=== PATIENT | female | born 1950 | race Caucasian/White ===

== ENCOUNTER → 2018-12-04 | Outpatient (CLI) | payer BC ==
--- NOTE | 2018-12-04 17:21 | KCIC ---
CERVICAL SPINE 5V History: Degenerative disc disease, neck pain, radiculopathy, previous surgery, right hand numbness Comparison: May 24, 2005 Findings: 7 views cervical spine are submitted. There has been anterior cervical fusion at C5-6 at which there is anterior metallic plate and screws, incorporated interbody graft at this level. There is grade 1 anterior spondylolisthesis at C3-C4. There is [id number] degenerative disc disease at C4-5, also fairly advanced narrowing of the C6-7 intervertebral disc space. There is spondylosis greatest C6-7 and to lesser degree at C4-5. There is multilevel cervical facet degenerative change. There is large area of calcification of the visualized superior right hemithorax near the lung apex, present on previous chest CT 2011. Impression: 1. There is intact anterior cervical fusion hardware C5-6. 2. There is multilevel cervical facet degenerative change. There is degenerative disc disease and spondylosis greatest at C6-7 and to lesser degree at C4-5. There is grade 1 anterior spondylolisthesis C3-4. 3. There is a large area of abnormal calcification of the right lung apex as seen on previous CT in 2011. Electronically signed by: Ruiz Ulloa MD (12/04/2018 5:18 PM) [id number]
== END | disposition home or self-care (01) ==
LOC: KCIC 15:32
PROVIDERS: ATTEND Physician Assistant Medical
DX: M50.121 Cervical disc disorder at C4-C5 level with radiculopathy (principal); M47.22 Other spondylosis with radiculopathy, cervical region; M43.12 Spondylolisthesis, cervical region; Z98.890 Other specified postprocedural states
CPT/HCPCS: 72050

== ENCOUNTER → 2018-12-05 | Outpatient (CLI) | payer BC ==
--- NOTE | 2018-12-05 16:40 | KCIC ---
MRI Cervical Spine Without Contrast History: Neck pain, previous surgery, numbness of the right hand, degenerative disc disease Technique: Multiplanar, multi sequential noncontrast MR imaging was performed of the cervical spine. Comparison: CT exam February 19, 2005; cervical spine radiograph December 04, 2018 Findings: There is some motion degradation. There has been anterior cervical fusion C5-6, incorporated interbody graft at this level. There is moderate to severe narrowing of the C6-7 intervertebral disc space, mild degenerative disc disease C4-5. There is minimal grade 1 anterior spondylolisthesis C3-C4. There is mild reversal of the lordotic curvature centered near C5-6. Cervical cord caliber is within normal limits without focal signal abnormality. C2-C3: Neural foramina and spinal canal are adequate. There is mild right facet hypertrophic change. C3-C4: There is moderate left facet hypertrophic change. Spinal canal and neural foramina are adequate. C4-C5: There is fairly severe left facet degenerative change. There is minimal disc osteophyte complex. Central canal is adequate about 11 mm. There is mild narrowing of the left neural foramen, right neural foramen adequate. C5-C6: There are posterior osteophytes, central canal minimally narrowed to 9 to 10 mm. Neural foramina are adequate. There is mild facet degenerative change greater on the right. C6-C7: There is minimal disc osteophyte complex and bulge, central canal borderline about 10 mm. There is uncovertebral degenerative change and facet degenerative change bilaterally. There is moderate narrowing of the right neural foramen. Left neural foramen is likely adequate, small nerve root sleeve cyst present. C7-T1: Spinal canal and neural foramina are adequate. Impression: 1. There has been anterior cervical fusion C5-6 with incorporated interbody graft at this level. 2. There is moderate to severe degenerative disc disease C6-7, mild degenerative disc disease at C4-C5. There is multilevel mild spondylosis. There is mild spinal stenosis C5-6 by osteophytes. 3. There is multilevel facet and uncovertebral degenerative change. There is moderate narrowing of the right C6-7 neural foramen, mild narrowing on the left at C4-C5. 4. There is minimal grade 1 anterior spondylolisthesis C3-4. Electronically signed by: Ruiz Ulloa MD (12/05/2018 4:37 PM) [id number]
== END | disposition home or self-care (01) ==
LOC: KCIC MRI 15:39
PROVIDERS: ATTEND Physician Assistant Medical
DX: M50.121 Cervical disc disorder at C4-C5 level with radiculopathy (principal); M48.02 Spinal stenosis, cervical region; M25.78 Osteophyte, vertebrae; M43.12 Spondylolisthesis, cervical region
CPT/HCPCS: 72141

== ENCOUNTER → 2019-03-26 | Outpatient (CLI) | payer BC ==
[~2019-03-26] MED LIST: ASCO500T PO; CHOL100013 PO; GABA-689 PO; IOHEXOL 180 MG/ML 10 ML VIAL. ONE; MULT1TAB52 PO; NAPR220C4 PO; OMEG1CAP38 PO; TIOT18CA IH; methylPREDNISolone ACETATE 40 MG/ML VIAL. ONE; methylPREDNISolone ACETATE 80 MG/ML VIAL. ONE
--- NOTE | 2019-03-26 23:54 | PAIN ---
DATE OF SERVICE: 03/26/2019 INITIAL CONSULTATION CHIEF COMPLAINT: Neck and right greater left, upper extremity pain. HISTORY OF PRESENT ILLNESS: This is a 68-year-old female who presents with history of pain in the base of neck and shoulders, right upper extremity greater than left, since about October of this year, not a result of any specific injury or action that she is aware of, but is gradually increasing, worse with time, a sharp pain, is tingling, numbness and radiation to the right upper extremity, aching pain in the base of the neck and shoulders, worse with activity, standing, walking, lifting items with the right arm, reaching over head with her right hand. The patient reports it does not awaken her from sleep at night, does not affect her bowel or bladder control or ability to walk. She is taking gabapentin, which she feels does help, she takes this at night only. Has also done some physical therapy, which she feels is helpful as well, but the pain is still persistent. The patient did have an MRI scan of the cervical spine showing previous surgery at C5-C6 level and now at C6-C7 showing some mild degenerative disk disease with moderate narrowing in the right neural foramen; left neural foramen likely adequate. Small nerve root sleeve cyst present as well. The patient rates his disability rate from 0-10, 10 being the worst, at a 5 with family home responsibilities, recreation, social activity, occupation and sexual behavior and self-care and 1 with life support activities. The patient notes no loss of motor function, significant fatigability of the right upper extremity with activity and holding items which she reports is becoming more difficult. PAST MEDICAL HISTORY: Significant for COPD, cigarette smoking, quit 6 years ago, hearing loss, arthritis. PREVIOUS SURGERY: Includes cervical fusion in 2004. CURRENT MEDICATIONS: Include naproxen, omega fish oil, vitamin D, vitamin C, Spiriva and gabapentin. ALLERGIES: THE PATIENT IS ALLERGIC TO NEOSPORIN, LEVAQUIN, POLYSPORIN, AUGMENTIN AND FOSAMAX. FAMILY HISTORY: Significant for cancers of various types. SOCIAL HISTORY: The patient does not drink, quit smoking about 6 years ago, is not using any illegal, illicit or recreational drugs. Is , lives with her spouse, lives locally in [place] and is currently retired. REVIEW OF SYSTEMS: The patient's review of systems is positive for those items mentioned in history of present illness. All systems reviewed and otherwise negative. It is complete, full and well documented on the patient's chart. PHYSICAL EXAMINATION: VITAL SIGNS: The patient's blood pressure is 135/76, pulse is 87, respirations 19, temperature 98.0 degrees Fahrenheit, height is 5 feet 3 inches, weight is 115 pounds. GENERAL: The patient is awake, alert, oriented, appropriate, very pleasant demeanor. HEENT: Head is normocephalic, atraumatic. Extraocular movements are intact and symmetrical. Oral cavity: Mucous membranes moist and pink. Dentition is intact. NECK: Shows anterior throat supple without palpable lymphadenopathy noted. Swallow reflex symmetrical. CHEST: Shows normal with inspection. Breath sounds clear to auscultation bilaterally. HEART: Shows S1, S2 clear. No murmurs auscultated. ABDOMEN: Soft, nontender, nondistended. No palpable organomegaly is noted. No rebound or guarding demonstrated. BACK: Shows spine grossly in the midline. Normal-appearing thoracic kyphosis and cervical lordotic curvature. Cervical paraspinous muscle shows symmetrical on inspection, on palpation shows some moderate tenderness diffusely, but only diffusely bilaterally without radiation. The patient has good rotational motion of cervical spine, both laterally as well as extension and flexion with some minor tenderness with extension, but not with forward flexion, with some pulling sensation with forward flexion, but worst turning to the right past 45 degrees and left is nontender. EXTREMITIES: The patient's upper extremities show deep tendon reflexes 2+ in the biceps and triceps tendons. Motor exam is strong with dolphin trainer strength rated at approximately 4/5 on the right and 5/5 on the left. Bicep and tricep flexion also 4/5 right and 5/5 left. Peripheral pulses are 2+ radial distribution. No peripheral edema is noted. Upper extremities are warm and dry to touch, equal in color and appearance. Shoulder shrug is strong and intact without loss of strength on resistance, but with some moderate pain in the patient's right shoulder and right arm posteriorly with resistance only on the right side. The patient's skin shows warm and dry, good turgor. No edema. No sores, rashes or bruising. IMPRESSION: 1. This is a 68-year-old female with approximate 4-month history of increasing pain, base of the neck, right upper extremity in a radicular fashion without any specific injury or action she is aware of. 2. MRI scan of the cervical spine as noted. 3. Arthritis. 4. Chronic obstructive pulmonary disease. 5. Hearing loss. PLAN: Options were discussed with the patient and the patient's spouse, who accompanies her to visit today including conservative medical management, continued therapies and interventional techniques. She would like to pursue interventional techniques. We discussed a cervical epidural steroid injection using description as well as anatomical models to describe the procedure. Risks were discussed including but not limited to bleeding, infection, possibility of epidural hematoma, subsequent neurologic compromise, dural puncture, headaches, spinal cord and/or nerve damage, side effects of steroid medication and poor results regarding pain control. The patient understands and wished to proceed. The patient will return to clinic in approximately 2 weeks for followup, was counseled as to return appointment, activity level and side effects to be aware of. DIAGNOSES: Cervical radiculopathy with cervical degenerative disk disease and cervical post-laminectomy syndrome. PROCEDURE: Cervical epidural steroid injection, translaminar approach at the C6-C7 level using C-arm fluoroscopic guidance under sterile prep and drape using local anesthetic. MEDICATION INJECTED: A total of 120 mg Depo-Medrol plus 5 mL of preservative-free normal saline and 2 mL of contrast. CONDITION AT DISCHARGE: Stable. The patient tolerated procedure well and had no complications. TORI GROVES MD DR: MAGDALENA/simran JOB#: [id number] / [id number]
== END ==
LOC: PNCL 13:29
PROVIDERS: ATTEND Anesthesiology
DX: M50.123 Cervical disc disorder at C6-C7 level with radiculopathy (principal); M96.1 Postlaminectomy syndrome, not elsewhere classified; J44.9 Chronic obstructive pulmonary disease, unspecified; Z87.891 Personal history of nicotine dependence; Z87.39 Personal history of other diseases of the musculoskeletal system and connective tissue; Z88.1 Allergy status to other antibiotic agents; Z88.8 Allergy status to other drugs, medicaments and biological substances
CPT/HCPCS: 62321; J1030; J1040; Q9965

== ENCOUNTER → 2019-04-09 | Outpatient (CLI) | payer BC ==
--- NOTE | 2019-04-10 01:12 | PAIN ---
DATE OF SERVICE: 04/09/2019 DIAGNOSES: Cervical radiculopathy with cervical degenerative disk disease and cervical post-laminectomy syndrome. HISTORY OF PRESENT ILLNESS: The patient is a 68-year-old female, who returns for followup status post cervical epidural steroid injection x 1. The patient reports about 50% improvement in the neck and bilateral upper extremities with much improvement though with some pain returning over the past 2-3 days. The patient reports it is now tingling, aching, dull at times, on and off in intensity, though much less than originally. We increased her distance walking with doing activities at home and traveling with greater ease. She drove herself to her appointment today, which she reports she has not driven for several weeks because the pain was making her nervous about it, but she drove today and did well. The patient reports her pain on the past week has been a 5 on a scale of 10 at its worst, 4 on average and a 2 at its least and is a 4 today. The patient reports no new motor or sensory deficits, no new changes. PHYSICAL EXAMINATION: VITAL SIGNS: The patient's blood pressure is 156/76, pulse 91, respirations 18, temperature 98.2 degrees Fahrenheit, height is 5 feet 3 inches, weight is 117 pounds. GENERAL: The patient is awake, alert, oriented, appropriate, very pleasant demeanor. HEENT: Head is normocephalic and atraumatic. Extraocular movements are intact and symmetrical. Oral cavity: Mucous membranes moist and pink. Dentition is intact. NECK: Shows anterior throat supple without palpable lymphadenopathy noted. Swallow reflex symmetrical. CHEST: Shows normal on inspection. Breath sounds clear to auscultation bilaterally. HEART: Shows S1, S2 clear. No murmurs auscultated. ABDOMEN: Soft, nontender, nondistended. No palpable organomegaly is noted. No rebound or guarding demonstrated. BACK: Shows spine grossly in the midline, normal-appearing cervical lordotic curvature and thoracic kyphotic curvature. The patient's neck shows good rotational motion of cervical spine, both laterally as well as in extension and flexion without significant pain or difficulty. EXTREMITIES: The patient's upper extremities show deep tendon reflexes 2+ in the biceps and triceps tendons. 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 Peripheral pulses are 2+ radial distribution. No peripheral edema is noted bilaterally. Options were discussed with the patient and the patient's old chart was reviewed as her current medication regimen updated. Current review of systems updated today as well. We will proceed with a second in the series of cervical epidural steroid injection today with fluoroscopic guidance. Risks were again discussed including, but not limited to bleeding, infection, possibility of epidural hematoma and subsequent neurological compromise, dural puncture, headaches, spinal cord and/or nerve damage, side effects of steroid medication and poor results regarding pain control. The patient understands and wished to proceed. The patient will return to clinic in approximately 2 weeks for followup. She was counseled as to return appointment, activity level and side effects to be aware of. DIAGNOSES: Cervical radiculopathy with cervical degenerative disk disease and cervical post-laminectomy syndrome. PROCEDURE: Cervical epidural steroid injection, translaminar approach C6-C7 level using C-arm fluoroscopic guidance under sterile prep and drape using local anesthetic. MEDICATION INJECTED: A total of 120 mg Depo-Medrol plus 5 mL of preservative-free normal saline and 2 mL of contrast. CONDITION AT DISCHARGE: Stable. The patient tolerated the procedure well, had no complications. TORI GROVES MD DR: MAGDALENA/simran JOB#: [id number] / [id number]
== END ==
LOC: PNCL 13:23
PROVIDERS: ATTEND Anesthesiology
DX: M50.123 Cervical disc disorder at C6-C7 level with radiculopathy (principal); M96.1 Postlaminectomy syndrome, not elsewhere classified
CPT/HCPCS: 62321; J1030; J1040; Q9965